=== PATIENT | male | born 1955 | race Caucasian/White ===

== ENCOUNTER 2022-11-20 09:21 | Inpatient (IN) ==
[2022-11-20 10:16] LABS: Hematocrit (blood only) 39.1 % (42.0-52.0); Hemoglobin 13.4 g/dl (14.0-18.0); Mean Corpuscular Hemoglobin 30.7 pg (25.0-34.0); Mean Corpuscular Hgb Conc 34.3 g/dL (32.0-36.0); Mean Corpuscular Volume 89.5 fL (80.0-100.0); Mean Platelet Volume 11.7 fL (9.4-12.4); Platelet Count 236 K/uL (130-400); RDW Coefficient of Variation 14.8 % (11.5-14.5); RDW Standard Deviation 48.1 fL (36.4-46.3); Red Blood Count 4.37 M/uL (4.70-6.10); White Blood Count 10.99 K/ul (4.8-10.8)
[2022-11-20] MEDS ORDERED: FAMOTIDINE 20MG IV PUSH 20 MG/5 ML SYR IV STA (10:23)
--- NOTE | 2022-11-20 10:29 | Emergency Department Note ---
Impression & Plan Chest pain, NSTEMI (non-ST elevated myocardial infarction), Hypertension ED Provider Note ED Provider Note NAME: HALI HARO AGE:67 SEX: Male : 1955 ARRIVES VIA: private vehicle INFORMANT: Patient ED PROVIDER(s): Mariia De DO CHIEF COMPLAINT: Chest pain HPI: This is a 67-year-old male presents emerged department with concern for chest pain. Patient states he will frequently get a sense of indigestion in his lower chest and upper abdomen after eating that will go away fairly quickly within several minutes. He states often times this will happen in the morning. He states this morning when he woke from sleep the pain was already present which is unusual and the pain seemed to last longer. He states he had not had anything To eat or drink this morning. 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 No history of heart problems. He denies any history of asthma, COPD. He is a former smoker. Patient states he does not use a daily acid reflux medication and has never seen GI for this or had an EGD. He denies recent fevers, chills, or illness. Patient states he did have a few episodes of diarrhea in the last 2 to 3 days which she attributes to bad Martiniquais food. PAST MEDICAL HISTORY:See Below PAST SURGICAL HISTORY:See Below FAMILY HISTORY:See Below SOCIAL HISTORY:See Below HOME MEDICATIONS:See Below ALLERGIES:See Below VITALS:See Below PHYSICAL EXAMINATION: GENERAL: alert, well appearing, well nourished, no distress, non-toxic EYE EXAM: normal conjunctiva, PERRL and EOM's grossly intact OROPHARYNX: no exudate, no erythema, lips, buccal mucosa, and tongue normal and mucous membranes are moist NECK: supple, no nuchal rigidity, no adenopathy, non-tender LUNGS: Clear to auscultation. Normal chest wall mechanics, no w/r/r HEART: no murmurs, S1 normal and S2 normal ABDOMEN: abdomen soft, non-tender, normo-active bowel sounds, no masses, no rebound or guarding. BACK: Back is symmetrical on inspection and there is no deformity, no midline tenderness, no CVA tenderness. SKIN: no rashes, petechiae, orbruising UPPER EXTREMITIES: upper extremities are grossly normal. FROM, nml pulses b/l. LOWER EXTREMITIES: No pitting edema. FROM, nml pulses b/l. NEURO EXAM: Normal sensorium, cranial nerves II-XII grossly intact, normal speech, no facial droop,nogross weakness of arms, no gross weakness of legs. Gross sensation intact. No ataxia. Vital Signs: reviewed and remarkable Differential Diagnosis: ACS, PE, GERD, esophageal spasm, pneumonia, peripheral, GI bleed, pleural effusion, dissection, pericardial effusion, pericarditis/myocarditis, as well as others were considered MEDICAL DECISION MAKING: This is a 67-year-old male presents emergency department due to concern for atypical chest pain lasting longer than normal this morning. Patient was afebrile and vital signs stable. Labs drawn and sent, IV established, EKG and chest ray performed at bedside and interpreted by me and patient monitored on telemetry. I did have concern as patient had an abnormal EKG however there were no priors for comparison. Patient's troponin ultimately resulted elevated additionally which was concerning. Repeat EKG showed no dynamic changes foll owing this, patient started on IV morphine additionally for pain after no improvement with IV Pepcid due to his initial concern for indigestion. Case discussed with hospitalist team after updating the patient bedside due to concern for evolving ACS and at this time NSTEMI. Patient given aspirin and started on heparin drip additionally pending additional cardiology evaluation. Consultation(s): 1120: Discussed with Karine Antonio hospitalist team. ER Treatment Provided: See below 1056: Patient updated on abnormal EKG, elevated troponin, and need for additional evaluation. Diagnostics Interpreted By Me: -ECG: Normal sinus at 61 with first-degree AV block, right bundle branch block, normal QTc, ST depression seen in lead I, and V2 through V4, slight appearance of ST elevation in lead III EKG #2 shows sinus bradycardia at 58 with a first-degree AV block, right bundle branch block, ST depression again seen in V2 through V5 with ST elevation in lead III -Cardiac Monitoring: An order was placed for continuous cardiac monitoring. The monitor shows a rate of 59 with normal sinus rhythm. -Laboratory studies: As stated above and show below. -Imaging studies: X-ray Chest: A single view study of the chest was reviewed and was negative for cardiomegaly, focal infiltrate, effusion, pulmonary edema, or wide mediastinum. Triage Nursing Note Reviewed Prior/Outside Records Reviewed Procedures: [] Critical Care: Critical care of 39 min performed to assess and manage high likelihood of life- threatening ACS, involving labs and imaging performed with assessment to evaluate chest pain diagnosis with frequent reassessment. This time includes bedside time, treatment discussions with patient/family/consultants, documentation time and excludes procedure time. Past Med/Surg History Medical History Leukocytosis Surgical History S/P cholecystectomy Family History Other HLD (hyperlipidemia) Thyroid disease Social History (Updated 11/20/22 @ 11:41 by Marisela Kerns PA-C) Smoking Status: Never smoker Hx Alcohol Use: No Hx Substance Use: No Preferred Language: Citizen Of [place] Beliefs That Will Affect Care: None Current Living Situation: Spouse Feels Safe at Home: Yes Safety Concerns: Feels Safe At This Time Assistive Devices: None Allergies Allergies Allergy/AdvReac Type Severity Reaction Status Date / Time No Known Allergies Allergy Unverified 11/20/22 11:00 Home Meds Home Medications Medication Instructions Recorded Confirmed ibuprofen 400 mg tablet 400 mg PO Q6H PRN Pain 11/20/22 11/20/22 Results & Data (ED) Vital Signs Vital Signs - 24 hr 11/20/22 09:30 11/20/22 09:49 11/20/22 10:06 Temperature 36.8 C Temperature Source Oral Pulse Rate 62 56 L Respiratory Rate 16 Blood Pressure 158/98 H Blood Pressure Mean 118 Pulse Oximetry 96 98 Oxygen Delivery Method Room Air Room Air Sepsis Recent Fever Within 48 Hours No Sepsis New/Unexplained Change in Mental Status No Sepsis Action Taken by Nursing No Action Required 11/20/22 10:02 11/20/22 10:30 11/20/22 10:30 Temperature Temperature Source Pulse Rate 57 L 56 L Respiratory Rate 19 16 Blood Pressure 148/88 H Blood Pressure Mean 122 Pulse Oximetry Oxygen Delivery Method Sepsis Recent Fever Within 48 Hours Sepsis New/Unexplained Change in Mental Status Sepsis Action Taken by Nursing 11/20/22 11:00 11/20/22 11:01 11/20/22 11:01 Temperature Temperature Source Pulse Rate 60 63 Respiratory Rate 14 17 Blood Pressure 150/100 H Blood Pressure Mean 115 Pulse Oximetry Oxygen Delivery Method Sepsis Recent Fever Within 48 Hours Sepsis New/Unexplained Change in Mental Status Sepsis Action Taken by Nursing 11/20/22 11:10 11/20/22 11:20 Temperature Temperature Source Pulse Rate 57 L 60 Respiratory Rate 10 L 9 L Blood Pressure Blood Pressure Mean Pulse Oximetry Oxygen Delivery Method Sepsis Recent Fever Within 48 Hours Sepsis New/Unexplained Change in Mental Status Sepsis Action Taken by Nursing Laboratory Data 11/20/22 09:48 11/20/22 09:48 Lab Results 11/20/22 11/20/22 11/20/22 Range/Units 09:48 09:48 09:48 WBC 10.99 H (4.8-10.8) K/ul RBC 4.37 L (4.70-6.10) M/uL Hgb 13.4 L (14.0-18.0) g/dl Hct 39.1 L (42.0-52.0) % MCV 89.5 (80.0-100.0) fL MCH 30.7 (25.0-34.0) pg MCHC 34.3 (32.0-36.0) g/dL RDW Std Deviation 48.1 H (36.4-46.3) fL RDW Coeff of Henry 14.8 H (11.5-14.5) % Plt Count 236 (130-400) K/uL MPV 11.7 (9.4-12.4) fL Immature Gran % (Auto) 8.7 % Neut % (Auto) 49.9 % Lymph % (Auto) 21.4 % Beauregard % (Auto) 18.2 % Eos % (Auto) 1.1 % Baso % (Auto) 0.7 % Neut # (Auto) 5.48 (1.40-6.50) K/uL Lymph # (Auto) 2.35 (1.2-3.4) K/uL Beauregard # (Auto) 2.00 H (0.11-0.59) K/uL Eos # (Auto) 0.12 (0-0.50) K/uL Baso # (Auto) 0.08 (0-0.2) K/uL Immature Gran # (Auto) 0.96 H (0.01-0.20) K/uL Polychromasia 1+ PT (9.0-12.0) Seconds INR (0.9-1.1) APTT (21.0-31.0) Seconds PTT Ratio D-Dimer 1020 H* (0-500) ug/L FEU Sodium 137 (136-145) mmol/L Potassium 3.8 (3.5-5.1) mmol/L Chloride 106 (98-107) mmol/L Carbon Dioxide 24 (21-32) mmol/L Anion Gap 7 (3-11) BUN 21 (6-23) mg/dl Creatinine 0.92 (0.6-1.4) mg/dl Est Cr Clr Drug Dosing 100.1 ml/min Est GFR ( Amer) 98.0 ml/min Est GFR (Non-Af Amer) 84.6 ml/min BUN/Creatinine Ratio 22.8 H (10-20) Glucose 121 H (70-99(Fasting)) mg/dl Calcium 9.4 (8.6-10.3) mg/dl Magnesium 1.9 (1.7-2.4) mg/dl Total Bilirubin 0.6 (0.2-1.0) mg/dl AST 21 (13-39) U/L ALT 20 (7-52) U/L Alkaline Phosphatase 96 (34-104) U/L Troponin I High Sens 84.8 H* (0-20) pg/ml Total Protein 8.2 (6.0-8.3) gm/dl Albumin 4.5 (3.4-5.0) gm/dl Globulin 3.7 (2.5-4.0) gm/dl Albumin/Globulin Ratio 1.2 (0.9-2) Lipase 13 (11-82) U/L SARS-CoV-2 (PCR) (Negative) Influenza Type A (PCR) (Neg) Influenza Type B (PCR) (Neg) RSV (RT-PCR) (Neg) 11/20/22 11/20/22 Range/Units 09:48 11:11 WBC (4.8-10.8) K/ul RBC (4.70-6.10) M/uL Hgb (14.0-18.0) g/dl Hct (42.0-52.0) % MCV (80.0-100.0) fL MCH (25.0-34.0) pg MCHC (32.0-36.0) g/dL RDW Std Deviation (36.4-46.3) fL RDW Coeff of Henry (11.5-14.5) % Plt Count (130-400) K/uL MPV (9.4-12.4) fL Immature Gran % (Auto) % Neut % (Auto) % Lymph % (Auto) % Beauregard % (Auto) % Eos % (Auto) % Baso % (Auto) % Neut # (Auto) (1.40-6.50) K/uL Lymph # (Auto) (1.2-3.4) K/uL Beauregard # (Auto) (0.11-0.59) K/uL Eos # (Auto) (0-0.50) K/uL Baso # (Auto) (0-0.2) K/uL Immature Gran # (Auto) (0.01-0.20) K/uL Polychromasia PT 10.9 (9.0-12.0) Seconds INR 1.0 (0.9-1.1) APTT 29.6 (21.0-31.0) Seconds PTT Ratio 1.0 D-Dimer (0-500) ug/L FEU Sodium (136-145) mmol/L Potassium (3.5-5.1) mmol/L Chloride (98-107) mmol/L Carbon Dioxide (21-32) mmol/L Anion Gap (3-11) BUN (6-23) mg/dl Creatinine (0.6-1.4) mg/dl Est Cr Clr Drug Dosing ml/min Est GFR ( Amer) ml/min Est GFR (Non-Af Amer) ml/min BUN/Creatinine Ratio (10-20) Glucose (70-99(Fasting)) mg/dl Calcium (8.6-10.3) mg/dl Magnesium (1.7-2.4) mg/dl Total Bilirubin (0.2-1.0) mg/dl AST (13-39) U/L ALT (7-52) U/L Alkaline Phosphatase (34-104) U/L Troponin I High Sens (0-20) pg/ml Total Protein (6.0-8.3) gm/dl Albumin (3.4-5.0) gm/dl Globulin (2.5-4.0) gm/dl Albumin/Globulin Ratio (0.9-2) Lipase (11-82) U/L SARS-CoV-2 (PCR) NEGATIVE (Negative) Influenza Type A (PCR) Negative (Neg) Influenza Type B (PCR) Negative (Neg) RSV (RT-PCR) Negative (Neg) Administered Medications Atorvastatin Calcium (Atorvastatin 40 Mg Tab) 40 mg PO QAM SHEREE Stop: 12/20/22 13:59 Last Admin: 11/20/22 16:33 Dose: Not Given Documented By: MESSI Sodium Chloride (Nss 1000ml) 1,000 mls @ 100 mls/hr IV .Q10H SHEREE Stop: 12/20/22 10:29 Last Infusion: 11/20/22 11:53 Dose: 0 mls/hr Documented By: Admin: 11/20/22 10:33 Dose: 250 mls/hr Documented By: ARIEL Heparin Sodium/Dextrose (Heparin Sodium/Dextrose) 25,000 units in 500 mls @ 20 mls/hr IV .Q24H [facility]; Protocol Stop: 12/20/22 11:29 Last Admin: 11/20/22 11:46 Dose: 1,000 units/hr, 20 mls/hr Documented By: ARIEL Co-signed By: MITRA Nitroglycerin/Dextrose (Nitroglycerin/D5w 100 Mcg/Ml) 250 mls @ 3 mls/hr IV .Q24H [facility] Stop: 12/20/22 16:14 Last Admin: 11/20/22 16:29 Dose: 5 mcg/min, 3 mls/hr Documented By: MESSI Co-signed By: ROBERTO Discontinued Medications Aspirin (Aspirin Chew 324 Mg) 324 mg PO NOW STA Stop: 11/20/22 11:09 Last Admin: 11/20/22 11:56 Dose: 324 mg Documented By: ARIEL Fentanyl Citrate (Fentanyl Citrate Pf 100 Mcg/2 Ml Vial) Confirm Administered Dose 100 mcg .ROUTE .STK-MED ONE Stop: 11/20/22 14:08 Last Increment: 11/20/22 15:41 Dose: 50 mcg Documented By: SOFIA Heparin Sodium (Porcine) (Heparin Sod (Porcine) 1000 Unit/Ml) 1 units IV NOW ONE Stop: 11/20/22 11:22 Last Admin: 11/20/22 11:45 Dose: Not Given Documented By: ARIEL Heparin Sodium (Porcine) (Heparin Sod (Porcine) 1000 Unit/Ml) 4,000 units IV NOW ONE Stop: 11/20/22 11:46 Last Admin: 11/20/22 11:44 Dose: 4,000 units Documented By: ARIEL Co-signed By: MITRA Heparin Sodium (Porcine) (Heparin (Porcine) 1000 Unit/Ml 10 Ml (Sampling Theory Teacher Use Only)) Confirm Administered Dose 10,000 units .ROUTE .STK-MED ONE Stop: 11/20/22 14:08 Last Admin: 11/20/22 16:33 Dose: Not Given Documented By: MESSI Heparin Sodium/Sodium Chloride (Heparin In Nss Infusion 1000 Unit/500 Ml (2 U/Ml) Bag) Confirm Administered Dose 4,000 units IV .STK-MED ONE Stop: 11/20/22 14:08 Last Admin: 11/20/22 16:33 Dose: Not Given Documented By: MESSI Famotidine (Pepcid 20mg Iv Push) 20 mg in 5 mls @ 2.5 mls/min IV NOW STA Stop: 11/20/22 10:24 Last Admin: 11/20/22 10:33 Dose: 2.5 mls/min Documented By: ARIEL Midazolam HCl (Midazolam Hcl 1 Mg/Ml 2ml Vial) Confirm Administered Dose 2 mg .ROUTE .STK-MED ONE Stop: 11/20/22 14:08 Last Increment: 11/20/22 15:41 Dose: 1 mg Documented By: SOFIA Morphine Sulfate (Morphine Sulfate 4 Mg/Ml 1 Ml Carp\Vial) 4 mg IV NOW STA Stop: 11/20/22 10:59 Last Admin: 11/20/22 11:07 Dose: 4 mg Documented By: ARIEL Nicardipine HCl (Nicardipine Hcl Inj 2.5 Mg/Ml 10 Ml Amp) Confirm Administered Dose 25 mg .ROUTE .STK-MED ONE Stop: 11/20/22 14:08 Last Admin: 11/20/22 16:33 Dose: Not Given Documented By: MESSI Nitroglycerin (Nitroglycerin 2% Ointment 30gm Tube) 0.5 inch EXT Q6H SHEREE Stop: 12/20/22 11:59 Last Admin: 11/20/22 12:20 Dose: 0.5 inch Documented By: ARIEL Nitroglycerin/Dextrose (Nitroglycerin/D5w 100mcg/Ml 20ml Syr) Confirm Administered Dose 2,000 mcg .ROUTE .STK-MED ONE Stop: 11/20/22 14:09 Last Admin: 11/20/22 16:34 Dose: Not Given Documented By: MSD Imaging Data Radiologist's Impression: Chest X-Ray 11/20/22 09:36 SINGLE VIEW CHEST CLINICAL HISTORY: Atypical chest pain. FINDINGS: 2 AP, portable, upright chest radiographs are obtained. No prior studies are available for comparison at the time of dictation. The heart is mildly enlarged. The pulmonary vasculature is noncongested. There is mild bibasilar scarring/atelectasis. The lungs and pleural spaces are otherwise clear. No pneumothorax is seen. The bony thorax is grossly intact. IMPRESSION: No acute cardiopulmonary abnormality is identified. ACT 112: Negative or not required by law. Electronically signed by: Hermann Marrufo M.D. 11/20/2022 10:28 AM Discharge Plan Visit Data Chief Complaint: Chest Pain Stated Complaint: CHEST PAIN ED Provider: Mariia De Discharge Problem: Chest pain, NSTEMI (non-ST elevated myocardial infarction), Hypertension Patient Disposition: Admitted As Inpatient Discharge Instructions Interventions: ED Discharge Assessment Last Done: 11/20/22 12:38
--- NOTE | 2022-11-20 10:29 | XRay Report ---
SINGLE VIEW CHEST CLINICAL HISTORY: Atypical chest pain. FINDINGS: 2 AP, portable, upright chest radiographs are obtained. No prior studies are available for comparison at the time of dictation. The heart is mildly enlarged. The pulmonary vasculature is nonco ngested. There is mild bibasilar scarring/atelectasis. The lungs and pleural spaces are otherwise ashly ar. No pneumothorax is seen. The bony thorax is grossly intact. IMPRESSION: No acute cardiopulmonary abnormality is identified. ACT 112: Negative or not required by law. Electronically signed by: Hermann Marrufo M.D. 11/20/2022 10:28 AM
[2022-11-20] MEDS: SODIUM CHLORIDE 0.9% 1000ML 1,000 ML IV SCH ×2 (10:33→18:45)
[2022-11-20 10:35] LABS: Albumin Globulin Ratio 1.2 (0.9-2); Albumin Level 4.5 gm/dl (3.4-5.0); BUN Creatinine Ratio 22.8 (10-20); Bilirubin,Total 0.6 mg/dl (0.2-1.0); Calcium 9.4 mg/dl (8.6-10.3); Creatinine Clr Calc Pharmacy 100.1 ml/min; Est GFR (Non-African American) 84.6 ml/min; Globulin 3.7 gm/dl (2.5-4.0); Potassium 3.8 mmol/L (3.5-5.1); Total Protein 8.2 gm/dl (6.0-8.3)
[2022-11-20 10:48] LABS: Basophils # (auto) 0.08 K/uL (0-0.2); Basophils % (auto) 0.7 %; Eosinophils # (auto) 0.12 K/uL (0-0.50); Eosinophils % (auto) 1.1 %; Immature Granulocytes # (auto) 0.96 K/uL (0.01-0.20); Immature Granulocytes % (auto) 8.7 %; Lymphocytes # (auto) 2.35 K/uL (1.2-3.4); Lymphocytes % (auto) 21.4 %; Monocytes % (auto) 18.2 %; Neutrophils # (auto) 5.48 K/uL (1.40-6.50); Neutrophils % (auto) 49.9 %; Polychromasia 1+
[2022-11-20] MEDS ORDERED: MoRPHine SULFATE 4 MG/ML 1 ML CARP\\VIAL IV STA (10:58)
[2022-11-20] MEDS ORDERED: Heparin IV Adult Wt-Based Low-Dose WITH Bolus Protocol STA (11:06)
[2022-11-20] MEDS ORDERED: ASPIRIN CHEW 324 MG PO STA (11:08)
[2022-11-20] MEDS ORDERED: HEPARIN SOD (PORCINE) 1000 UNIT/ML IV ONE ×3 (11:21→18:50)
[2022-11-20 11:46] LABS: D Dimer 1020 ug/L FEU (0-500)
[2022-11-20] MEDS: HEPARIN SODIUM/DEXTROSE 25,000 UNITS/500 ML BAG IV SCH ×2 (11:46→18:51)
--- NOTE | 2022-11-20 11:48 | History & Physical Report ---
Date of Service November 20, 2022 Assessment & Plan (1) NSTEMI (non-ST elevated myocardial infarction): Plan: This is a 67yo M with no known PHM who presents with worsening chest pain since this morning and was found to have an NSTEMI. Intermittent indigestion x 3 months, worse this AM prompting ED BP 150/100, HS trop 90, initial EKG with SR with 1 degree AV block, ST depressions in anterolateral leads, RBBB (no available baseline EKG) Given aspirin, IV heparin bolus and drip, 2D echo ordered, discussed with Dr. 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 Is being referred to oncology for further care. DVT Ppx: IV heparin Code status: FULL PCP: Vasu Dispo: Admitted to PCU Patient seen in collaboration with Dr. Alexander. Please see addendum. History of Present Illness Chief Complaint: CP Primary Care Provider: NO PCP This is a 67yo M with no known PHM who presents with worsening chest pain since this morning. Patient resides in [place] and PCP is Dr. Leone with [facility]. 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 Denies history of HTN, DM II, heart disease or kidney disease. Smoked <1ppd intermitt ently for over 20 years but quit a few years ago. Endorses feeling of indigestion over the past 3 months that is intermittent and usually goes away if he stands still and holds his breath. This morning, patient woke up with a similar feeling of indigestion but it was more severe and did not resolve on its own. Describes his discomfort now as an aching pain that is radiating down to epigastrium. Denies any radiation to neck, arms or shoulders. Took antacid this morning and that did not alleviate pain. Does not notice any increased pain with exertion. No diaphoresis, nausea, vomiting or SOB. No recent F/C, lightheadedness, near syncope, palpitations, abdominal pain, dysuria. Had diarrhea the past few days that seems to have subsided today. Has not had anything to eat yet today. Denies any known personal cardiac history or family. Only home medication is PRN ibuprofen. 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 Is being referred to oncology for further care. Allergies Allergy/AdvReac Type Severity Reaction Status Date / Time No Known Allergies Allergy Unverified 11/20/22 11:00 Home Medications Medication Instructions Recorded Confirmed Type aspirin 81 mg tablet,delayed 0 mg PO DAILY PRN Chest Pain 11/20/22 11/20/22 History release Past Med/Surg History Medical History Leukocytosis Surgical History S/P cholecystectomy Family History Other HLD (hyperlipidemia) Thyroid disease Social History (Updated 11/20/22 @ 11:41 by Marisela Kerns PA-C) Smoking Status: Former smoker Hx Alcohol Use: No Hx Substance Use: No Preferred Language: [place] Feels Safe at Home: Yes Review of Systems Review of Systems: At least ten systems reviewed and negative except as noted in the HPI. Physical Exam Physical Exam: Please see Dr. Alexander's addendum for physical exam. Results & Data Results & Data Vital Signs (Past 12 Hours) Vital Signs Temp Pulse Resp BP Pulse Ox O2 Del Method 11/20/22 11:01 63 17 11/20/22 11:01 150/100 H 11/20/22 11:00 60 14 11/20/22 10:30 56 L 16 11/20/22 10:30 148/88 H 11/20/22 10:02 57 L 19 11/20/22 10:06 56 L 11/20/22 09:49 98 Room Air 11/20/22 09:30 36.8 C 62 16 158/98 H 96 Room Air Laboratory Results Short CBC 11/20/22 Range/Units 09:48 WBC 10.99 H (4.8-10.8) K/ul Hgb 13.4 L (14.0-18.0) g/dl Hct 39.1 L (42.0-52.0) % Plt Count 236 (130-400) K/uL BMP 11/20/22 09:48 Sodium 137 Potassium 3.8 Chloride 106 Carbon Dioxide 24 BUN 21 Creatinine 0.92 Glucose 121 H Calcium 9.4 Liver Function 11/20/22 Range/Units 09:48 Total Bilirubin 0.6 (0.2-1.0) mg/dl AST 21 (13-39) U/L ALT 20 (7-52) U/L Alkaline Phosphatase 96 (34-104) U/L Albumin 4.5 (3.4-5.0) gm/dl Diagnostic Findings Chest X-Ray 11/20/22 09:36 SINGLE VIEW CHEST CLINICAL HISTORY: Atypical chest pain. FINDINGS: 2 AP, portable, upright chest radiographs are obtained. No prior studies are available for comparison at the time of dictation. The heart is mildly enlarged. The pulmonary vasculature is noncongested. There is mild bibasilar scarring/atelectasis. The lungs and pleural spaces are otherwise clear. No pneumothorax is seen. The bony thorax is grossly intact. IMPRESSION: No acute cardiopulmonary abnormality is identified. ACT 112: Negative or not required by law. Electronically signed by: Hermann Marrufo M.D. 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 Patient is a poor historian with patient thought his symptoms were secondary to indigestion but denies any relief with antacids. Patient woke up this morning with worsening pain and so came to ED for further evaluation. He admits to be a smoker previously but quit about 3 years ago. Denies any significant aggravating or alleviating factors. Also denies any dyspnea, dizziness, nausea, vomiting, abdominal pain. It reports having diarrhea 3 days ago which currently resolved. No known history of coronary artery disease. Patient was started on IV heparin in ED and received aspirin. Please review HPI for complete details of presentation. He was noted to have leukocytosis, elevated D-dimer, glucose 121, troponin 88.5 and mild bradycardia. EKG suggestive of ST depression in anterolateral leads, right bundle branch block. No prior EKGs available for comparison. Physical Exam: Vitals signs as noted above General Appearance:Moderately built and nourished, no apparent distress Head: normocephalic, Atraumatic Eyes: normal inspection, EOMI Neck: supple, Trachea midline Respiratory/Chest: Normal breath sounds, CTA, No accessory muscle use Cardiovascular: S1, S2, + murmur Abdomen/GI:Soft, Non tender, Bowel sounds present Extremities/Musculoskeletal:normal inspection, no edema Neurologic/Psych:AAOX3, grossly no focal neurological deficits Skin: normal color, warm NSTEMI Elevated D-dimer Elevated blood pressure likely situational CML Sinus bradycardia Agree with IV heparin, NTG, gentle IV fluids Check resting echo, trend cardiac enzymes Hold CTA for now given possibility of cardiac cath, already on IV heparin Will eventually need CTA to rule out PE Check lipid panel, A1c Pepcid as needed Start on aspirin 81 mg daily Cardiology consulted N.p.o. for now for possible procedure Further management based on results and Cardiology Recs I personally reviewed the record. Patient is interviewed and examined at bedside. Patient's care is coordinated with Marisela Kerns PA-C. Please refer to the documentation above for details of patient's presentation and for discussion of other issues.
[2022-11-20 11:56] LABS: Magnesium 1.9 mg/dl (1.7-2.4)
[2022-11-20 12:00] LABS: Partial Thromboplastin Time 29.6 Seconds (21.0-31.0); Prothrombin Time 10.9 Seconds (9.0-12.0)
[2022-11-20] MEDS ORDERED: NITROGLYCERIN 2% OINTMENT 30GM TUBE EXT SCH (12:00)
[2022-11-20 12:17] LABS: Influenza A virus by PCR Negative (Neg); Influenza B virus by PCR Negative (Neg); RSV by PCR Negative (Neg); SARS CoV2 RNA(COVID-19) Ceph NEGATIVE (Negative)
[2022-11-20] MEDS ORDERED: ACETAMINOPHEN 325 MG TAB PO PRN (13:09)
[2022-11-20] MEDS ORDERED: ONDANSETRON INJ 2 MG/ML 2 ML VIAL IV PRN (13:09)
[2022-11-20] MEDS ORDERED: POLYETHYLENE (MIRALAX) 17 GM PACK PO PRN (13:09)
[2022-11-20] MEDS ORDERED: FAMOTIDINE 10 MG TABLET PO PRN (13:09)
--- NOTE | 2022-11-20 13:27 | Cardiology Consultation ---
Date of Consultation November 20, 2022 Assessment & Plan (1) NSTEMI (non-ST elevated myocardial infarction): (2) Chest pain: (3) Hypertension: (4) Abnormal EKG: Plan Patient admitted with substernal chest pain, persistent since this morning. Prior symptoms over the last few months have been intermittent but becoming more frequent and occurring with exertional activities, concerning for crescendo angina. EKG on admission with NSR with RBBB with ST depression in anterolateral leads. Initial troponin 89, second troponin 791. Started on ASA, IV heparin, nitro ointment add statin persistent 2/10 chest pain currently. Echo pending Patient NPO. Given persistent chest pain, elevated troponin, abnormal EKG, recommend proceeding with diagnostic cardiac catheterization. Further recommendations pending echo results and evaluation with attending human services instructor. Case discussed with Dr. Corrigan I spent a total of 65 minutes on the date of service in preparation, delivery, and documentation of the care provided to this patient, excluding any time spent in the performance of separately billed services. Farideh Yeung PA-C Department of Cardiology, [facility] This chart was completed in part utilizing Speech Voice Recognition Software. Grammatical errors, random word insertions, pronoun errors, and incomplete sentences are an occasional consequence of this system due to software limitations, ambient noise, and hardware issues. Any formal questions or concerns about the content, text, or information contained within the body of this dictation should be directly addressed to the provider for clarification. Supervising Physician Co-Signing Physician Notes Cardiology Attending Attestation: I personally performed a history and physical examination on Mr Romeo. I agree with the findings and plans as noted by Chandrakant Yeung PA-C with additional as noted below. S: 67 year old male presents with chest pain at rest having had waxing and waning chest pain for the last few months. At my assessment , still with 2/10 chest pain, however, patient appears uncomfortable and is very stoic. Exam: CV: regular rhythm, no murmurs, no edema Ext: no edema , 2+ bilateral radial pulses Data: HS trop 85--> 791 EKG performed today x 2 and interpreted independently: SR , RBBB, ST depression in anterior leads and lateral leads Bedside echocardiogram: mild to moderate LV systolic dysfunction, LAD territory wall motion abnormality. Mild . Impression: NSTEMI HTN Dyslipidemia Plan: ASA, IV heparin infusion, topical nitrate, statin therapy. Proceed with cardiac catheterization today. Case discussed with the patient's nurse and Dr Arechiga of interventional cardiology. Vicente Corrigan DO History of Present Illness Reason for Consultation: Chest pain; NSTEMI Requesting Physician: Ms. Luis F PA-C Attending Physician: Dr. Corrigan History of Present Illness Patient is a 67 year old male who was admitted to [facility] today for complaints of substernal/epigastric chest pain. He denies history of cardiovascular issues/problems. No prior cardiac evaluation. History includes: 1. Prior tobacco abuse 2. 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 Family history of premature CAD. Father with CABG age 50's. Patient reports waxing/waning chest discomfort over the last few months. Thought he had "heart burn". Symptoms would come and go at rest or with exertional activities, often resolving with rest or several deep breaths. Symptoms are becoming more frequent and lasting longer. This morning patient reported awakening from sleep with substernal/epigastric chest pain, described as an "ache/burning". No radiation or associated symptoms. Unfortunately pain did not resolve and he came to ER for evaluation. Upon a rrival to ER, EKG demonstrated NSR with RBBB and ST depression in anterolateral leads. Initial troponin minimally elevated at 89. Repeat troponin elevated at 791. Patient started on ASA, IV heparin, nitro paste. D.Dimer is elevated as well, no hypoxia. BP is elevated. Chest X-ray without acute findings. At time of consult, patient just transferred to floor. Updated vitals pending. NSR on telemetry with resting HR in the 60's. He reports ongoing substernal chest pain, rating 2/10. Reports symptoms have improved since this morning but not resolved. He denies radiation of his discomfort or associated symptoms. no nausea/vomiting, diaphoresis, SOB, dizziness or palpitations. No calf pain or edema. Allergies Allergy/AdvReac Type Severity Reaction Status Date / Time No Known Allergies Allergy Unverified 11/20/22 11:00 Home Medications Medication Instructions Recorded Confirmed Type aspirin 81 mg tablet,delayed 0 mg PO DAILY PRN Chest Pain 11/20/22 11/20/22 History release Patient History Medical History Leukocytosis Surgical History S/P cholecystectomy Family History Other HLD (hyperlipidemia) Thyroid disease Social History (Updated 11/20/22 @ 11:41 by Marisela Kerns PA-C) Smoking Status: Never smoker Hx Alcohol Use: No Hx Substance Use: No Preferred Language: Ken[place] Beliefs That Will Affect Care: None Current Living Situation: Spouse Feels Safe at Home: Yes Safety Concerns: Feels Safe At This Time Assistive Devices: None Review of Systems Review of Systems: All systems reviewed & are unremarkable except as noted in HPI & below Physical Exam Constitutional: WD/WN, vitals as above no acute distress Neck: trachea midline, no thyromegaly Respiratory: normal respiratory effort; no labored breathing Auscultation: no crackles, no rales and no rhonchi Cardiovascular: Rate/Rhythm: regular rate and regular rhythm Heart Sounds: normal S1 and normal S2; no murmur Vessels: no JVD Extremities: no edema Gastrointestinal (Abdomen): normal bowel sounds, soft, nontender, no hepatosplenomegaly Skin: no rashes, warm and dry Neurologic: PERRL, EOMI, accommodation nl, no face palsy, no dysarthria Results & Data Vital Signs (Past 12 Hours) Vital Signs Temp Pulse Resp BP Pulse Ox O2 Del Method 11/20/22 12:30 56 L 17 11/20/22 12:30 160/88 H 11/20/22 12:20 58 L 20 11/20/22 12:10 61 16 11/20/22 12:00 62 13 11/20/22 12:00 169/98 H 11/20/22 11:50 59 L 17 11/20/22 11:40 60 15 11/20/22 11:30 57 L 11 L 11/20/22 11:30 158/90 H 11/20/22 11:20 60 9 L 11/20/22 11:10 57 L 10 L 11/20/22 11:01 63 17 11/20/22 11:01 150/100 H 11/20/22 11:00 60 14 11/20/22 10:30 56 L 16 07/06/23 10:30 148/88 H 11/20/22 10:02 57 L 19 11/20/22 10:06 56 L 11/20/22 09:49 98 Room Air 11/20/22 09:30 36.8 C 62 16 158/98 H 96 Room Air Laboratory Results Cardiac Enzymes 11/20/22 11/20/22 Range/Units 09:48 12:17 AST 21 (13-39) U/L Troponin I High Sens 88.5 H* 791.9 H* D (0-20) pg/ml Coagulation 11/20/22 Range/Units 09:48 PT 10.9 (9.0-12.0) Seconds APTT 29.6 (21.0-31.0) Seconds CBC 11/20/22 Range/Units 09:48 WBC 10.99 H (4.8-10.8) K/ul RBC 4.37 L (4.70-6.10) M/uL Hgb 13.4 L (14.0-18.0) g/dl Hct 39.1 L (42.0-52.0) % Plt Count 236 (130-400) K/uL Neut # (Auto) 5.48 (1.40-6.50) K/uL Lymph # (Auto) 2.35 (1.2-3.4) K/uL [place] # (Auto) 2.00 H (0.11-0.59) K/uL Eos # (Auto) 0.12 (0-0.50) K/uL Baso # (Auto) 0.08 (0-0.2) K/uL Comprehensive Metabolic Panel 11/20/22 Range/Units 09:48 Sodium 137 (136-145) mmol/L Potassium 3.8 (3.5-5.1) mmol/L Chloride 106 (98-107) mmol/L Carbon Dioxide 24 (21-32) mmol/L BUN 21 (6-23) mg/dl Creatinine 0.92 (0.6-1.4) mg/dl Glucose 121 H (70-99(Fasting)) mg/dl Calcium 9.4 (8.6-10.3) mg/dl AST 21 (13-39) U/L ALT 20 (7-52) U/L Alkaline Phosphatase 96 (34-104) U/L Total Protein 8.2 (6.0-8.3) gm/dl Albumin 4.5 (3.4-5.0) gm/dl Intake and Output 11/19/22 11/20/22 11/20/22 22:59 06:59 14:59 Intake Total 1000 / 1000 Balance 1000 / 1000 Intake: IV 1000 / 1000 Sodium Chloride 0.9% 1000ML 1, 1000 / 1000 000 ml @ 250 mls/hr IV .Q4H [facility] Rx#:[id number] Other: Weight 117 kg Weight Measurement Method Stated by Patient Patient Weight 11/21/22 06:59 Weight 117 kg Diagnostic Findings Telemetry reviewed: Sinus ceci and NSR HR's ranging 55-65 bpm. No arrhythmias. EKG on arrival - NSR with RBBB with ST depression in V2 and possible ST elevation in III. No prior for comparison. Repeat EKG - NSR with RBBB. Similar to initial EKG Chest xray - no acute process Medications Administered Current Inpatient Medications Acetaminophen (Acetaminophen 325 Mg Tab) 650 mg PO Q4H PRN PRN Reason: Pain or Fever Stop: 12/20/22 13:08 Aspirin (Aspirin 81 Mg Ectab) 81 mg PO DAILY [facility] Stop: 12/21/22 08:59 Famotidine (Famotidine 10 Mg Tablet) 10 mg PO BID PRN PRN Reason: Heartburn Stop: 12/20/22 13:08 Sodium Chloride (Nss 1000ml) 1,000 mls @ 100 mls/hr IV .Q10H [facility] Stop: 12/20/22 10:29 Last Infusion: 11/20/22 11:53 Dose: Infused Heparin Sodium/Dextrose (Heparin Sodium/Dextrose) 25,000 units in 500 mls @ 20 mls/hr IV .Q24H [facility]; Protocol Stop: 12/20/22 11:29 Last Admin: 11/20/22 11:46 Dose: 1,000 units/hr, 20 mls/hr Nitroglycerin (Nitroglycerin 2% Ointment 30gm Tube) 0.5 inch EXT Q6H [facility] Stop: 12/20/22 11:59 Last Admin: 11/20/22 12:20 Dose: 0.5 inch Ondansetron HCl (Ondansetron Inj 2 Mg/Ml 2 Ml Vial) 4 mg IV Q6H PRN PRN Reason: Nausea Stop: 12/20/22 13:08 Polyethylene Glycol (Polyethylene (Miralax) 17 Gm Pack) 17 gm PO DAILY PRN PRN Reason: Constipation Stop: 12/20/22 13:08
[2022-11-20 13:50] LABS: Troponin I High Sensitivity 84.8 pg/ml (0-20)
--- NOTE | 2022-11-20 13:56 | Communication Note ---
Date of Service: November 20, 2022 Cardiology Attending Attestation: I personally performed a history and physical examination on Mr Romeo. I agree with the findings and plans as noted by Chandrakant Yeung PA-C with additional as noted below. S: 67 year old male presents with chest pain at rest having had waxing and waning chest pain for the last few months. At my assessment , still with 2/10 chest pain, however, patient appears uncomfortable and is very stoic. Exam: CV: regular rhythm, no murmurs, no edema Ext: no edema , 2+ bilateral radial pulses Data: HS trop 85--> 791 EKG performed today x 2 and interpreted independently: SR , RBBB, ST depression in anterior leads and lateral leads Bedside echocardiogram: mild to moderate LV systolic dysfunction, LAD territory wall motion abnormality. Mild . Impression: NSTEMI HTN Dyslipidemia Plan: ASA, IV heparin infusion, topical nitrate, statin therapy. Proceed with cardiac catheterization today. Case discussed with the patient's nurse and Dr Arechiga of interventional cardiology. Vicente Corrigan DO
[2022-11-20] MEDS ORDERED: ATORVASTATIN 40 MG TAB PO SCH (14:00)
[2022-11-20] MEDS ORDERED: HEPARIN (PORCINE) 1000 UNIT/ML 10 ML (CATH LAB USE ONLY) ONE (14:07)
[2022-11-20] MEDS ORDERED: fentaNYL citrate PF 100 MCG/2 ML VIAL ONE (14:07)
[2022-11-20] MEDS ORDERED: MIDAZOLAM HCL 1 MG/ML 2ML VIAL ONE (14:07)
[2022-11-20] MEDS ORDERED: niCARdipine HCL INJ 2.5 MG/ML 10 ML AMP ONE (14:07)
[2022-11-20] MEDS ORDERED: NITROGLYCERIN/D5W 100MCG/ML 20ML SYR ONE (14:08)
--- NOTE | 2022-11-20 15:49 | Post Anesthesia Assessment ---
Date of Service November 20, 2022 Post Sedation Assessment Vital Signs Temp Pulse Pulse Resp BP BP Pulse Ox 11/20/22 13:11 98.2 F 56 L 16 158/87 H 95 11/20/22 12:30 56 L 17 11/20/22 12:30 160/88 H 11/20/22 12:20 58 L 20 11/20/22 12:10 61 16 11/20/22 12:00 62 13 11/20/22 12:00 169/98 H 11/20/22 11:50 59 L 17 11/20/22 11:40 60 15 11/20/22 11:30 57 L 11 L 11/20/22 11:30 158/90 H 11/20/22 11:20 60 9 L 11/20/22 11:10 57 L 10 L 11/20/22 11:01 63 17 11/20/22 11:01 150/100 H 11/20/22 11:00 60 14 11/20/22 10:30 56 L 16 11/20/22 10:30 148/88 H 11/20/22 10:02 57 L 19 11/20/22 10:06 56 L 11/20/22 09:49 98 11/20/22 09:30 98.2 F 62 16 158/98 H 96 O2 Del Method 11/20/22 13:11 Room Air 11/20/22 12:30 11/20/22 12:30 11/20/22 12:20 11/20/22 12:10 11/20/22 12:00 11/20/22 12:00 11/20/22 11:50 11/20/22 11:40 11/20/22 11:30 11/20/22 11:30 11/20/22 11:20 11/20/22 11:10 11/20/22 11:01 11/20/22 11:01 11/20/22 11:00 11/20/22 10:30 11/20/22 10:30 11/20/22 10:02 11/20/22 10:06 11/20/22 09:49 Room Air 11/20/22 09:30 Room Air Recovery Score Activity: Moves 4 extremities Respiration: Deep Breath/Cough Circulation: +/-20% PreAnes Value Consciousness: Fully Awake Oxygen Saturation: O2 needed for >90% Discharge Sedation Level of Care: Fast Track Phase II Post Sedation Plan On clinical assessment, the patient appears to have tolerated the sedation without complications. Patient is recovering as anticipated. Patient will continue to be monitored by nursing and may be discharged when sedation discharge criteria are met per below protocol. Upon Completions of procedure up to 15 minutes continue every 5 minute vital signs and the P.A.R. score; then discharge to a Phase I or Fast Track to Phase II per the following guidelines: * Discharge Patient to appropriate Phase II area if PAR is 8 or greater or return to pre- procedure baseline. The post - procedure orders will be as directed. * If PAR score is less than 8 or not return to pre-procedure baseline then patient will follow Phase I monitoring till PAR is reached for Phase II. The Phase I may be done in procedure room or may call to secure a Phase I area. * If naloxone or flumazenil are used for reversal, hold in Phase I for continued monitoring from when last reversal dose was given for a minimum of 60 minutes or longer pending the nurse and/or physician discretion of patient condition before discharge to Phase II. Please call the Sedation Physician to re-evaluate and complete post-note for discharge to Phase II area. Do NOT discharge from procedure sedation or Phase 1 until post- sedation evaluation note is complete by procedure /sedation MD Sedation Discharge Instructions to be given to the patient at discharge to home.
--- NOTE | 2022-11-20 15:49 | Pre Anesthesia Assessment ---
Date of Service November 20, 2022 Pre Sedation Assessment Vital Signs Temp Pulse Pulse Resp BP BP Pulse Ox 11/20/22 13:11 98.2 F 56 L 16 158/87 H 95 11/20/22 12:30 56 L 17 11/20/22 12:30 160/88 H 11/20/22 12:20 58 L 20 11/20/22 12:10 61 16 11/20/22 12:00 62 13 11/20/22 12:00 169/98 H 11/20/22 11:50 59 L 17 11/20/22 11:40 60 15 11/20/22 11:30 57 L 11 L 11/20/22 11:30 158/90 H 11/20/22 11:20 60 9 L 11/20/22 11:10 57 L 10 L 11/20/22 11:01 63 17 11/20/22 11:01 150/100 H 11/20/22 11:00 60 14 11/20/22 10:30 56 L 16 11/20/22 10:30 148/88 H 11/20/22 10:02 57 L 19 11/20/22 10:06 56 L 11/20/22 09:49 98 11/20/22 09:30 98.2 F 62 16 158/98 H 96 O2 Del Method 11/20/22 13:11 Room Air 11/20/22 12:30 11/20/22 12:30 11/20/22 12:20 11/20/22 12:10 11/20/22 12:00 11/20/22 12:00 11/20/22 11:50 11/20/22 11:40 11/20/22 11:30 11/20/22 11:30 11/20/22 11:20 11/20/22 11:10 11/20/22 11:01 11/20/22 11:01 11/20/22 11:00 11/20/22 10:30 11/20/22 10:30 11/20/22 10:02 11/20/22 10:06 11/20/22 09:49 Room Air 11/20/22 09:30 Room Air Cardiovascular RRR, no murmur, no edema Respiratory normal respiratory effort, lungs clear to auscultation Pre-Sedation Airway Assessment Smoking Status: Never smoker Hx Sleep Apnea: No Hx Difficult Intubation: No Thyromental Distance: > or= 3.5 Finger Breadths Oral Cavity: + WNL Mallampati Class: III ASA: ASA3 Procedure Planning Contraindications for Sedation: none Current Medications Reviewed: Yes Notes The planned sedation has been discussed with the patient. Informed Consent was obtained. I have identified the patient, determined the appropriateness of sedation and have assessed the patient immediately prior to the procedure. All medicine(s) and interventions are by my order.
--- NOTE | 2022-11-20 16:01 | Cardiac Catheterization ---
[facility] Data: Chip Frier Cardiac Status Clinical evaluation leading to the procedure CAD Presenation: Non STEMI Anginal Classification: CCS IV Diagnostic Physicians Name: Ronnie Arechiga MD Closure Device Recommendations: CABG Cardiac Cath Procedure Full Procedure Date November 20, 2022 Pre-Procedure Diagnosis Pre-Procedure Diagnosis: Non STEMI AUC Score AUC Score: 8 Post-Procedure Diagnosis Post-Procedure Diagnosis: Severe CAD and Normal Intracardiac Pressures Procedure(s) Performed Procedure(s) Performed: Coronary Angiography and Left Heart Cath Steeping Press Operator Ronnie Arehciga MD Plater Barrel(s) Malcolm Estimated Blood Loss Estimated Blood Loss: 5 Medication(s) Medication(s): Fentanyl, Heparin, Lidocaine 1%, Nicardipine, Nitroglycerin and Versed Summary of Findings Indication: NSTEMI Access: 6 Fr right radial artery Catheters: [place], diagnostic JR4, EBU 3.5 guide Findings: LM -normal caliber, no significant disease LAD -medium caliber, 98% heavily calcified, earlymid stenosis prior to D1. Remainder of mid segment with severe diffuse disease prior to latemid chronic total occlusion. Distal vessel fills via left to left collaterals from septals. Small apical LAD occludes as wrapping around apex. Medium D1 without significant disease. Ramus50 to 60% mid stenosis prior to bifurcation Circumflex -medium caliber, 80% mid stenosis prior to OM 2, distal vessel with mild diffuse disease. Small OM2 70% stenosis. Medium OM3 60% proximal. Left PLB with mild proximal disease. Distal circumflex provides left to right collaterals to right PLB RCA -dominant, medium caliber, 100% proximal chronic total occlusion with right to right and [id number] collaterals to RPDA/RPLB. LVEDP -9 Arterial Closure: TR band Summary: 1. Severe multivessel coronary artery disease - 98% earlymid LAD stenosis prior to medium D1 (likely acute culprit) 100% late-mid LAD RED MUD THICKENER OPERATOR, distal vessel fills via left to left collaterals from septals. Small apical LAD occluded as wraps around apex. 100% proximal RCA RED MUD THICKENER OPERATOR, PDA fills via right to right collaterals. PLB via [id number] collaterals. 80% earlymid circumflex. 60% mid ramus prior to bifurcation. 70% proximal small OM2, 60% proximal medium OM3 2. Normal intracardiac filling pressure Recommendations: Referred to tertiary center for consideration of CABG Hemodynamics Rest Ao:: Final Ao: LV: 109/9 Recommendations Recommendations: CABG Specimens Specimens: None Radiation Exposure (mGy) 1203 Contrast (mls) 55 Anesthesia Moderate [id number] Procedural Complication(s) None Disposition PCU I attest to the content of the Intraoperative Record and any orders documented therein. Any exceptions are noted below. [facility] Card Cath Procedure Codes Cardiac Catheterization Procedure 1: Cardiovascular Cath Procedures: 30943 Coronaries and LHC (+/-LV) Moderate Sedation Procedure 1: Sedation/Anesthesia: 96554 Mod Sedation by the same physician;Init15 Min Child Age 5 & Up PG Care Time/CCT Total # of Minutes Spent Total Time Spent with Patient: Total time spent is greater than 50% in coordination of care (as documented) at patient's floor/unit and/or counseling patient:
--- NOTE | 2022-11-20 16:06 | Communication Note ---
Date of Service: November 20, 2022 Patient with findings of multivessel coronary heart disease. Recommend transfer to tertiary center for further evaluation including CT surgery consultation for consideration of CABG. Patient agreeable to transfer to [facility]. I reviewed his insurance with case management, and it appears his insurance would be accepted at [facility]. Patient agreeable to transfer. I discussed this case with Dr. Cony Sweet, who is non acoustic operator for the clinical cardiology inpatient service there who accept him in transfer. Will transfer via air. Patient will chest pain-free at the conclusion cardiac catheterization, hemodynamically stable. Continue heparin infusion, topical nitroglycerin. Given ongoing findings of sinus bradycardia in the 50s, there is not enough room to add a beta-nereyda.
[2022-11-20] MEDS ORDERED: STAT IV Infusion **Titration per Protocol STA (16:10)
[2022-11-20] MEDS ORDERED: NITROGLYCERIN/D5W 100MCG/ML 250 ML IV SCH (16:15)
--- NOTE | 2022-11-20 16:26 | Discharge Summary ---
Discharge Summary Date of Service November 20, 2022 Notes For Next Care Provider Presented with NSTEMI, found to have severe multivessel coronary artery disease during cardiac catheterization and transferring to [facility] [place] for CABG consideration. Medication Changes From Visit Continue IV heparin, aspirin, statin Admission HPI Per Admitting Provider This is a 67yo M with no known PHM who presents with worsening chest pain since this morning. Patient resides in [place] and PCP is Dr. Leone with [facility]. 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 Denies history of HTN, DM II, heart disease or kidney disease. Smoked <1ppd intermittently for over 20 years but quit a few years ago. Endorses feeling of indigestion over the past 3 months that is intermittent and usually goes away if he stands still and holds his breath. This morning, patient woke up with a similar feeling of indigestion but it was more severe and did not resolve on its own. Describes his discomfort now as an aching pain that is radiating down to epigastrium. Denies any radiation to neck, arms or shoulders. Took antacid this morning and that did not alleviate pain. Does not notice any increased pain with exertion. No diaphoresis, nausea, vomiting or SOB. No recent F/C, lightheadedness, near syncope, palpitations, abdominal pain, dysuria. Had diarrhea the past few days that seems to have subsided today. Has not had anything to eat yet today. Denies any known personal cardiac history or family. Only home medication is PRN ibuprofen. 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 Is being referred to oncology for further care. Admission Exam Per Admitting Provider General Appearance:Moderately built and nourished, no apparent distress Head: normocephalic, Atraumatic Eyes: normal inspection, EOMI Neck: supple, Trachea midline Respiratory/Chest: Normal breath sounds, CTA, No accessory muscle use Cardiovascular: S1, S2, + murmur Abdomen/GI:Soft, Non tender, Bowel sounds present Extremities/Musculoskeletal:normal inspection, no edema Neurologic/Psych:AAOX3, grossly no focal neurological deficits Skin: normal color, warm Principal Dx & Hospital Course #1 = Principal Diagnosis (1) NSTEMI (non-ST elevated myocardial infarction): (2) Leukocytosis: Plan This is a 67yo M with no known PHM who presents with worsening chest pain since this morning and was found to have an NSTEMI. Has been having intermittent indigestion x 3 months, worse this AM prompting visit to emergency room. High sensitivity troponin 85 -> 792, initial EKG with SR with 1 degree AV block, ST depressions in anterolateral leads, RBBB (no available baseline EKG). Given aspirin, IV heparin bolus and drip, 2D echo revealed mild to moderate LV systolic dysfunction and LAD territory wall motion abnormality. Dr. Corrigan evaluated patient and arranged for cardiac catheterization with Dr. Arechiga, which revealed severe multivessel coronary artery disease. Transferring to [facility] for cardiothoracic care and consideration of CABG. Continue IV heparin, topical nitroglycerin. Unable to tolerate beta nereyda at this time given ongoing findings of sinus bradycardia in the 50s. Patient hemodynamically stable and comfortable following diagnostic catheterization. Awaiting bed assignment and transport. 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 PCP arranging referral with oncology for further care. Discharge Exam General Appearance:Moderately built and nourished, no apparent distress Head: normocephalic, Atraumatic Eyes: normal inspection, EOMI Neck: supple, Trachea midline Respiratory/Chest: Normal breath sounds, CTA, No accessory muscle use Cardiovascular: S1, S2, + murmur Abdomen/GI:Soft, Non tender, Bowel sounds present Extremities/Musculoskeletal:normal inspection, no edema Neurologic/Psych:AAOX3, grossly no focal neurological deficits Skin: normal color, warm Updated Medication List Medication Instructions Recorded Confirmed Type ibuprofen 400 mg tablet 400 mg PO Q6H PRN Pain 11/20/22 11/20/22 History Hospital Stay Data Consultations 11/20/22 11:23 ED Decision to Admit Stat 11/20/22 11:31 Consult Cardiology Routine Procedures Performed Operation Date: 11/20/22 14:00 Actual Procedures p Cineradiography w/Routine Exam - Oswaldo Arechiga MD Diagnostic Imagining Performed 11/20/22 13:40 CL Cath Imgs for PACS use only Routine Pending Results Patient Have Any Pending Studies at Discharge: No Discharge Instructions Given to Patient (Per Discharging Provider) Admitted with chest pain and found to have NSTEMI with anterolateral ST depression and elevated high sensitivity troponin. 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 Transferring to tertiary care for cardiothoracic care and consideration of CABG. Continue IV heparin, topical nitroglycerin. Unable to tolerate beta nereyda at this time given ongoing findings of sinus bradycardia in the 50s. Current Inpatient Medications Acetaminophen (Acetaminophen 325 Mg Tab) 650 mg PO Q4H PRN PRN Reason: Pain or Fever Stop: 12/20/22 13:08 Aspirin (Aspirin 81 Mg Ectab) 81 mg PO DAILY SHEREE Stop: 12/21/22 08:59 Atorvastatin Calcium (Atorvastatin 40 Mg Tab) 40 mg PO QAM SHEREE Stop: 12/20/22 13:59 Famotidine (Famotidine 10 Mg Tablet) 10 mg PO BID PRN PRN Reason: Heartburn Stop: 12/20/22 13:08 Sodium Chloride (Nss 1000ml) 1,000 mls @ 100 mls/hr IV .Q10H SHEREE Stop: 12/20/22 10:29 Last Infusion: 11/20/22 11:53 Dose: Infused Heparin Sodium/Dextrose (Heparin Sodium/Dextrose) 25,000 units in 500 mls @ 20 mls/hr IV .Q24H SHEREE; Protocol Stop: 12/20/22 11:29 Last Admin: 11/20/22 11:46 Dose: 1,000 units/hr, 20 mls/hr Nitroglycerin/Dextrose (Nitroglycerin/D5w 100 Mcg/Ml) 250 mls @ 3 mls/hr IV .Q24H [facility] Stop: 12/20/22 16:14 Ondansetron HCl (Ondansetron Inj 2 Mg/Ml 2 Ml Vial) 4 mg IV Q6H PRN PRN Reason: Nausea Stop: 12/20/22 13:08 Polyethylene Glycol (Polyethylene (Miralax) 17 Gm Pack) 17 gm PO DAILY PRN PRN Reason: Constipation Stop: 12/20/22 13:08 Total Time Total Time Spent Total Time Spent (In Minutes): 60
[2022-11-20 18:27] LABS: Partial Thromboplastin Ratio 1.2; Partial Thromboplastin Time 33.3 Seconds (21.0-31.0); Prothrombin Time 11.3 Seconds (9.0-12.0)
[2022-11-21] MEDS ORDERED: ASPIRIN 81 MG ECTAB PO SCH (09:00)
--- NOTE | 2022-11-22 06:08 | Electrocardiogram Report ---
Test Reason : Blood Pressure : / mmHG Vent. Rate : 061 BPM Atrial Rate : 061 BPM P-R Int : 212 ms QRS Dur : 146 ms QT Int : 432 ms P-R-T Axes : 026 001 072 degrees QTc Int : 434 ms Sinus rhythm with 1st degree A-V block Right bundle branch block Nonspecific ST abnormality Abnormal ECG No previous ECGs available Confirmed by Mode Mcfarland ([id number]) on 11/22/2022 6:07:57 AM Referred By: Confirmed By:Mode Mcfarland
--- NOTE | 2022-11-22 06:10 | Electrocardiogram Report ---
Test Reason : Blood Pressure : / mmHG Vent. Rate : 058 BPM Atrial Rate : 058 BPM P-R Int : 212 ms QRS Dur : 148 ms QT Int : 444 ms P-R-T Axes : 025 003 025 degrees QTc Int : 435 ms Sinus bradycardia with 1st degree A-V block Right bundle branch block Nonspecific ST abnormality Abnormal ECG When compared with ECG of 20-NOV-2022 09:43, No significant change was found Confirmed by Mode Mcfarland ([id number]) on 11/22/2022 6:10:08 AM Referred By: REFERRED SELF Confirmed By:Mode Mcfarland
== END 2022-11-21 00:47 | disposition short-term general hospital (02) | DRG 281 ==
LOC: ED 09:21 → 2S 11:27
DX: I44.0 Atrioventricular block, first degree; Z82.49 Family history of ischemic heart disease and other diseases of the circulatory system; E78.5 Hyperlipidemia, unspecified; I10 Essential (primary) hypertension; Z20.822 Contact with and (suspected) exposure to COVID-19; I25.10 Atherosclerotic heart disease of native coronary artery without angina pectoris; I45.10 Unspecified right bundle-branch block; Z98.2 Presence of cerebrospinal fluid drainage device; C92.10 Chronic myeloid leukemia, BCR/ABL-positive, not having achieved remission; I21.4 Non-ST elevation (NSTEMI) myocardial infarction; Z87.891 Personal history of nicotine dependence